=== PATIENT | female | born 2000 | race Two or more races ===

== ENCOUNTER 2020-01-03 19:28 | Emergency (ER) | payer OTHER, SELFPAY ==
[~2020-01-03] VITALS: Ht 172.7 cm; Wt 113.4 kg
--- NOTE | 2020-01-03 19:41 | NUR ---
Pt ambualted to bed 3 with steady gait.
[2020-01-03 19:45] VITALS: BP 120/59
[2020-01-03 20:00] VITALS: BP 120/59
--- NOTE | 2020-01-03 20:00 | NUR ---
19 Y/O FEMALE C/O COVID-19 SYMPTOMS; SUBJECTIVE FEVER, LOSS OF TASTE, HEADACHE, COUGH X 1 WEEK. VSS. PT AFEBRILE. DENIES SOB. LUNG SOUNDS CLEAR. ABD SOFT NON TENDER. SKIN WARM AND DRY. DENIES PAIN AT THIS TIME. MHX: DENIES NKA
--- NOTE | 2020-01-03 20:15 | NUR ---
Patient discharged with v/s stable. Written and verbal after care instructions given and explained. Patient alert, oriented and verbalized understanding of instructions. Ambulatory with steady gait. All questions addressed prior to discharge. ID band removed. Patient advised to follow up with PMD. Rx of PROMETHAZINE, IBUPROFEN, AND ACETAMINOPHEN given. Patient educated on indication of medication including possible reaction and side effects. Opportunity to ask questions provided and answered.
--- NOTE | 2020-01-03 20:15 | NUR ---
NOVEL COVID SWAB DONE AND SENT TO LAB
== END 2020-01-03 20:13 | disposition home or self-care (01) ==
LOC: MED 19:28
DX: U07.1 COVID-19 (principal); R50.9 Fever, unspecified; R05 Cough; R51.9 Headache, unspecified
CPT/HCPCS: 99283; U0003